=== PATIENT | male | born 1985 | race Caucasian/White ===

== ENCOUNTER 2021-09-11 17:54 | Emergency (ER) | payer BC ==
[2021-09-11 18:04] VITALS: TEMP 98.3
[2021-09-11] MEDS ORDERED: DIPH,PERTUS(ACELL)TETVAC-LF 0.5 ML VIAL IM ONE (18:20)
[2021-09-11] MEDS ORDERED: MORPHINE SULFATE 4 MG/ML SYRINGE IV STA (18:26)
--- NOTE | 2021-09-11 18:28 | ED ---
General Adult HPI - General Chief complaint: Seizure Stated complaint: seizure Time Seen by Provider: 09/11/21 18:08 Source: patient, EMS Mode of arrival: EMS Limitations: no limitations - History of Present Illness Initial comments: Dictation was produced using [employer] dictation software. please excuse any grammatical, word or spelling errors. Chief Complaint: 36-year-old male transferred to our emergency Department from detox facility for witnessed seizure History of Present Illness: 36-year-old male who presents to the emergency department after having a witnessed seizure. Patient at [facility] detox facility for alcohol detoxification. Patient states he had dinner. He was done with dinner and was going to one of his last maze when all of a sudden he does not recall. According to EMS he had a witnessed [id number] seizure. Patient has a history of seizure or alcohol withdrawal seizures. Patient complaining of right shoulder pain and right facial pain. The ROS documented in this emergency department record has been reviewed and confirmed by me. Those systems with pertinent positive or negative responses have been documented in the HPI. All other systems are other negative and/or noncontributory. PHYSICAL EXAM: General Impression: Alert and oriented x3, acute distress secondary to pain HEENT: 5 mm laceration to the bridge of the nose, bilateral epistaxis, no septal hematoma, extra-ocular movements intact, pupils equal and reactive to light bilaterally, mucous membranes moist. Cardiovascular: Heart regular rate and rhythm Chest: Able to complete full sentences, no retractions, no tachypnea Abdomen: abdomen soft, non-tender, non-distended, no organomegaly Musculoskeletal: Pulses present and equal in all extremities, no peripheral edema Right upper extremity: Patient is holding his right arm, no obvious sulcus sign, neurovascularly intact Motor: no focal deficits noted Neurological: CN II-XII grossly intact, no focal motor or sensory deficits noted Skin: Intact with no visualized rashes Psych: Normal affect and mood ED course: 36-year-old male presents emergency department after alleged witnessed seizure. Vital signs upon arrival are within acceptable limits. There is no clear history of postictal state. X-ray of the shoulder shows anterior inferior dislocation. Procedural sedation was performed with dislocation reduction. Post reduction x-ray shows adequate reduction of the right shoulder joint. Laboratory evaluation obtained. CBC shows macrocytosis of 109.8. Patient given IM thiamine. Coag panel is unremarkable. Metabolic panel shows lactic acidosis 3.3. Computed tomography scan the face shows nasal septal fracture and skin laceration over the bridge of the nose. Computed tomography scan of the brain shows no acute intracranial processes. Patient observed in the emergency department for approximately 3 hours. His reevaluated at bedside at 8:45 PM found with stable medical condition. Has had no recurrent episodes of seizures. Vitals remained stable. Patient is well-appearing at the bedside. Disposition options were discussed. Patient was offered observation admission for new onset seizure. States that he wants to go back to [facility] to complete his detox treatment. Patient does not show any signs of occult withdrawal at the be dside is well-appearing and 9:00 PM. Patient given referral to orthopedic surgery for right shoulder dislocation. Suspect told to follow-up with his primary care doctor for outpatient workup of seizure. EKG interpretation: Ventricular rate 77, sinus rhythm,. 140, care is 1:30, QTC 363. No MI prolongation, no QTC prolongation, no ST or T-wave changes noted. Note EKG for comparison. Overall, this EKG is unremarkable - Related Data Home Medications Medication Instructions Recorded Confirmed Acetaminophen [Tylenol Arthritis] 650 mg PO Q4H PRN MDD 1950 MG 09/11/21 09/11/21 Atorvastatin (Unknown Strength) 1 dose PO HS 09/11/21 09/11/21 Calcium, Magnesium, Zinc, With Vit 1 tab PO TID PRN 09/11/21 09/11/21 C Chlorpheniramine Maleate 4 mg PO Q4H PRN 09/11/21 09/11/21 Hyoscyamine Sulfate [Levsin] 0.125 mg PO QID PRN 09/11/21 09/11/21 Ibuprofen [Motrin Ib] 600 mg PO Q6H PRN 09/11/21 09/11/21 Loperamide HCl [Imodium A-D] 4 mg PO QID PRN MDD 16 MG 09/11/21 09/11/21 Losartan Potassium [Cozaar] 25 mg PO DAILY 09/11/21 09/11/21 Mag Hydrox/Aluminum Hyd/Simeth 30 ml PO Q4H PRN 09/11/21 09/11/21 [Mylanta Maximum Strength Liq] Magnesium Hydroxide [Milk of 2,400 mg PO BID PRN 09/11/21 09/11/21 Magnesia] Multivitamins, Thera [Multivitamin 1 tab PO DAILY 09/11/21 09/11/21 (formulary)] Nicotine 21Mg/24Hr Patch [Habitrol] 1 patch TRANSDERM DAILY 09/11/21 09/11/21 Omeprazole [PriLOSEC] 20 mg PO DAILY 09/11/21 09/11/21 Thiamine HCl [Vitamin B-1] 100 mg PO DAILY 09/11/21 09/11/21 cloNIDine HCL [Catapres] 0.1 - 0.3 mg PO Q4H PRN 09/11/21 09/11/21 guaiFENesin [guaiFENesin Oral 200 mg PO Q4H PRN 09/11/21 09/11/21 Solution] ondansetron HCL [Zofran] 8 mg PO Q6H PRN 09/11/21 09/11/21 traZODone HCL 50 - 150 mg PO HS PRN 09/11/21 09/11/21 Allergies Allergy/AdvReac Type Severity Reaction Status Date / Time No Known Allergies Allergy Verified 09/11/21 18:54 Review of Systems ROS Statement: Those systems with pertinent positive or pertinent negative responses have been documented in the HPI. ROS Other: All systems not noted in ROS Statement are negative. Past Medical History Additional Past Medical History / Comment(s): ETOH abuse History of Any Multi-Drug Resistant Organisms: None Reported Past Surgical History: No Surgical Hx Reported Past Psychological History: No Psychological Hx Reported Smoking Status: Current every day smoker Past Alcohol Use History: Abuse Past Drug Use History: Marijuana General Exam Limitations: no limitations Course Vital Signs 09/11/21 09/11/21 09/11/21 17:59 19:10 19:15 Temperature 98.3 F Pulse Rate 96 80 91 Respiratory 20 18 18 Rate Blood Pressure 107/79 192/124 204/130 O2 Sat by Pulse 91 L 100 100 Oximetry 09/11/21 09/11/21 09/11/21 19:20 19:25 19:40 Temperature Pulse Rate 86 85 82 Respiratory 18 18 18 Rate Blood Pressure 193/115 151/95 137/94 O2 Sat by Pulse 98 98 99 Oximetry 09/11/21 19:55 Temperature Pulse Rate 84 Respiratory 18 Rate Blood Pressure 142/98 O2 Sat by Pulse 98 Oximetry Procedures - Laceration Laceration #1 Consent Obtained: verbal consent Indication: laceration Site: face Description: linear Depth: simple, single layer (5mm over the nasal bridge) Type of Sutures: other (dermabond) Patient Tolerated Procedure: well - Orthopedic Joint Reduction Joint #1 Consent Obtained: verbal consent, written consent Side: right Joint Reduction Location: shoulder Analgesia: procedural sedation Shoulder Technique Used (if applicable): traction/counter-traction Post-Reduction Neuro Exam: intact Post-Reduction Vascular Exam: intact Post Reduction X-Ray Obtained: Yes Post Reduction X-Ray Results: reduced Splint Applied: Yes Patient Tolerated Procedure: well - Procedural Sedation Procedural Sedation Start Time: 19:15 Procedural Sedation Stop Time: 19:17 Indications: fracture/dislocation reduction ASA Class: II Mallampati Airway Score: 2 Preparation: java android developer applied, pulse oximeter, capnometry used, supplemental O2 applied IV Propofol Dose (mgs): 200 Complications: none Patient Tolerated Procedure: well Medical Decision Making - Lab Data Result diagrams: 09/11/21 18:37 09/11/21 18:37 Lab Results 09/11/21 09/11/21 09/11/21 Range/Units 18:37 18:37 18:37 WBC 8.0 (3.8-10.6) k/uL RBC 3.99 L (4.30-5.90) m/uL Hgb 14.8 (13.0-17.5) gm/dL Hct 43.8 (39.0-53.0) % MCV 109.8 H (80.0-100.0) fL MCH 37.2 H (25.0-35.0) pg MCHC 33.8 (31.0-37.0) g/dL RDW 14.4 (11.5-15.5) % Plt Count 146 L (150-450) k/uL MPV 9.7 Neutrophils % 76 % Lymphocytes % 14 % Monocytes % 5 % Eosinophils % 1 % Basophils % 1 % Neutrophils # 6.1 (1.3-7.7) k/uL Lymphocytes # 1.1 (1.0-4.8) k/uL Monocytes # 0.4 (0-1.0) k/uL Eosinophils # 0.1 (0-0.7) k/uL Basophils # 0.0 (0-0.2) k/uL Macrocytosis Marked A PT 11.2 (9.0-12.0) sec INR 1.0 (<1.2) APTT 23.4 (22.0-30.0) sec Sodium 134 L (137-145) mmol/L Potassium 3.8 (3.5-5.1) mmol/L Chloride 100 (98-107) mmol/L Carbon Dioxide 23 (22-30) mmol/L Anion Gap 11 mmol/L BUN 12 (9-20) mg/dL Creatinine 0.97 (0.66-1.25) mg/dL Est GFR (CKD-EPI)AfAm >90 (>60 ml/min/1.73 sqM) Est GFR (CKD-EPI)NonAf >90 (>60 ml/min/1.73 sqM) Glucose 165 H (74-99) mg/dL Plasma Lactic Acid Thad (0.7-2.0) mmol/L Calcium 9.0 (8.4-10.2) mg/dL Magnesium 2.3 (1.6-2.3) mg/dL 09/11/21 Range/Units 18:37 WBC (3.8-10.6) k/uL RBC (4.30-5.90) m/uL Hgb (13.0-17.5) gm/dL Hct (39.0-53.0) % MCV (80.0-100.0) fL MCH (25.0-35.0) pg MCHC (31.0-37.0) g/dL RDW (11.5-15.5) % Plt Count (150-450) k/uL MPV Neutrophils % % Lymphocytes % % Monocytes % % Eosinophils % % Basophils % % Neutrophils # (1.3-7.7) k/uL Lymphocytes # (1.0-4.8) k/uL Monocytes # (0-1.0) k/uL Eosinophils # (0-0.7) k/uL Basophils # (0-0.2) k/uL Macrocytosis PT (9.0-12.0) sec INR (<1.2) APTT (22.0-30.0) sec Sodium (137-145) mmol/L Potassium (3.5-5.1) mmol/L Chloride (98-107) mmol/L Carbon Dioxide (22-30) mmol/L Anion Gap mmol/L BUN (9-20) mg/dL Creatinine (0.66-1.25) mg/dL Est GFR (CKD-EPI)AfAm (>60 ml/min/1.73 sqM) Est GFR (CKD-EPI)NonAf (>60 ml/min/1.73 sqM) Glucose (74-99) mg/dL Plasma Lactic Acid Thad 3.3 H* (0.7-2.0) mmol/L Calcium (8.4-10.2) mg/dL Magnesium (1.6-2.3) mg/dL Disposition Clinical Impression: New onset seizure, Shoulder dislocation Disposition: OTHER INSTITUTION NOT DEFINED Instructions (If sedation given, give patient instructions): Seizure/Epilepsy Discharge Instructions & Follow-Up, New-Onset Seizure in Adults (ED), Shoulder Dislocation (ED) Is patient prescribed a controlled substance at d/c from ED?: No Referrals: Heber Patten MD [REFERRING] - 1-2 days Bertin Dennison DO [Doctor of Osteopathic Medicine] - 1-2 days - Out of Hospital Transfer - Req. Specs Out of Hospital Transfer - Requested Specifics: Other Non-Acute ([facility])
[2021-09-11 18:45] LABS: Basophils % (A) 1 %; Eosinophils # (A) 0.1 k/uL (0-0.7); Eosinophils % (A) 1 %; HCT 43.8 % (39.0-53.0); HGB 14.8 gm/dL (13.0-17.5); Lymphocytes # (A) 1.1 k/uL (1.0-4.8); Lymphocytes % (A) 14 %; MCH 37.2 pg (25.0-35.0); MCHC 33.8 g/dL (31.0-37.0); MCV 109.8 fL (80.0-100.0); Macrocytosis Marked; Mean Platelet Volume 9.7; Monocytes # (A) 0.4 k/uL (0-1.0); Monocytes % (A) 5 %; Neutrophils # (A) 6.1 k/uL (1.3-7.7); Neutrophils % (A) 76 %; Platelet Count 146 k/uL (150-450); RBC 3.99 m/uL (4.30-5.90); RDW 14.4 % (11.5-15.5)
[2021-09-11] MEDS ORDERED: PROPOFOL 10 MG/ML 20 ML VIAL IV ONE (18:49)
[2021-09-11 18:55] LABS: African American GFR (CKD) >90 (>60 ml/min/1.73 sqM); Anion Gap 11 mmol/L; Blood Urea Nitrogen 12 mg/dL (9-20); Carbon Dioxide 23 mmol/L (22-30); Chloride 100 mmol/L (98-107); Glucose 165 mg/dL (74-99); Magnesium 2.3 mg/dL (1.6-2.3); Non-African American GFR(CKD) >90 (>60 ml/min/1.73 sqM); Potassium 3.8 mmol/L (3.5-5.1); Sodium 134 mmol/L (137-145)
--- NOTE | 2021-09-11 19:02 | XR ---
EXAMINATION TYPE: XR shoulder complete RT DATE OF EXAM: 09/11/2021 6:53 PM INDICATION: Patient age:Male; 36 years old; Reason for study: pain; COMPARISON: None TECHNIQUE: The right shoulder was examined in AP, internally rotated and axillary projections. FINDINGS: Anterior-inferior dislocation of the right shoulder. No obvious fracture of the glenoid. Hill-Sachs d eformity in the humeral head. IMPRESSION: Anterior-inferior right shoulder dislocation suspected Hill-Sachs deformity of the proximal humerus. No obvious fracture of the glenoid.
[2021-09-11 19:03] LABS: Partial Thromboplastin Time 23.4 sec (22.0-30.0); Prothrombin Time 11.2 sec (9.0-12.0)
[2021-09-11 19:15] VITALS: RESP 18
[2021-09-11] MEDS ORDERED: THIAMINE 100 MG/ML 2 ML VIAL IM STA (19:34)
--- NOTE | 2021-09-11 20:27 | XR ---
EXAMINATION TYPE: XR shoulder limited RT DATE OF EXAM: 09/11/2021 7:44 PM INDICATION: Patient age:Male; 36 years old; Reason for study: post reduction; COMPARISON: Same day radiographs TECHNIQUE: The right shoulder was examined in single view. FINDINGS: Interval reduction of anterior inferior dislocation with callus extremity the proximal right humerus. The glenoid appears intact. No additional fractures identified. IMPRESSION: Status post reduction of right anterior inferior shoulder dislocation with Hill-Sachs deformity of t he right proximal humerus.
--- NOTE | 2021-09-11 20:40 | CT ---
EXAMINATION TYPE: CT facial bones wo con CT DLP: 839.2 mGycm, Automated exposure control for dose reduction was used. DATE OF EXAM: 09/11/2021 8:18 PM COMPARISON: CT head same day. CLINICAL INDICATION:Male, 36 years old with history of fall;, facial trauma TECHNIQUE: Multiple unenhanced axial CT images were obtained of the facial bones soft tissue and bone windows. Coronal, axial and sagittal reformatted images were also provided in soft tissue and bone windows and submitted for interpretation. Additional 3-D reformatted images were obtained on a [employer] workstation. FINDINGS: Deformity of the nasal septum at least 2 fracture lines. No additional fractures are identified. Ther e is periodontal disease with osseous remodeling into the right maxillary sinus. The orbits/globes ar e intact. There is a skin defect of the bridge of nose. Paranasal sinuses demonstrate mild mucosal th ickening. The temporomandibular joints are within normal limits. IMPRESSION: 1. Acute nasal septum fracture in at least 2 locations. Findings also suspicious for left left nondi splaced nasal bone fracture. 2. Skin laceration over the bridge of the nose.
--- NOTE | 2021-09-11 20:40 | CT ---
EXAMINATION TYPE: CT brain wo con CT DLP: 839.2 mGycm, Automated exposure control for dose reduction was used. DATE OF EXAM: 09/11/2021 8:18 PM COMPARISON: CT face same day. CLINICAL INDICATION:Male, 36 years old with history of seizure, facial trauma TECHNIQUE: Brain: Multiple axial CT images of the brain were obtained without IV contrast. FINDINGS: Brain: Extra-axial spaces: No abnormal extra-axial fluid collections. 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 4 Ventricular system: Within normal limits Cerebral parenchyma: No acute intraparenchymal hemorrhage or mass effect. The nava-white junction is well differentiated. Cerebellum: Unremarkable. Mass effect: No evidence of midline shift. Intracranial vasculature: unremarkable Soft tissues: Normal. Calvarium/osseous structures: No depressed skull fracture. Paranasal sinuses and mastoid air cells: Mild scattered paranasal sinus disease. Visualized orbits: Orbital contents are intact. IMPRESSION: No acute intracranial process.
[2021-09-11] MEDS ORDERED: TOPICAL SKIN ADHESIVE 1 EACH AMP TOPICAL ONE (20:42)
[2021-09-11 22:03] VITALS: BP 150/85; PULSE 89
== END 2021-09-11 22:10 | disposition other institution (70) ==
LOC: EC 17:54
DX: S43.004A Unspecified dislocation of right shoulder joint, initial encounter (principal); R56.9 Unspecified convulsions; F17.200 Nicotine dependence, unspecified, uncomplicated; W19.XXXA Unspecified fall, initial encounter
CPT/HCPCS: 12011; 99285; 90471; 96374; 96375; 96372; 36415; 93005; 80048; 83605; 83735; 85025; 85610; 85730; 73020; 73030; 70486; 70450; 90715; 23650; J2270; J3411; J2704